=== PATIENT | female | born 2005 | race Caucasian/White ===

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

== ENCOUNTER 2025-01-13 18:02 | Outpatient (CLI) | payer MEDICAID, SELFPAY ==
--- NOTE | 2025-01-13 18:15 | DI.RAD_ITS ---
Exam(s) XR CHEST 2V PA LATERAL EXAM: XR CHEST 2V PA LATERAL CLINICAL HISTORY: eval pathology ? pna TECHNIQUE: 2D digital imaging was performed. Two views. COMPARISON: CR,XR XR CHEST 2V PA LATERAL from 03/28/2023 FINDINGS: HEART: Normal size. Aorta: Not dilated. PULMONARY VASCULATURE: Normal. MEDIASTINUM: Unremarkable. LUNGS: Clear. PLEURAL SPACE: No pleural effusion or pneumothorax. BONE:Unremarkable for age. SOFT TISSUES: Unremarkable. IMPRESSION: No acute abnormality. DATA REPOSITORY: RADIATION DOSE DELIVERED:
== END 2025-01-13 18:22 ==
LOC: DI 18:03
PROVIDERS: PCP Student in an Organized Health Care Education/Training Program; Visit Provider Nurse Practitioner Family
DX: R05.9 Cough, unspecified (principal)
CPT/HCPCS: 71046

== ENCOUNTER 2025-02-22 17:05 | Outpatient (CLI) | payer MEDICAID, SELFPAY ==
--- NOTE | 2025-02-22 17:00 | DI.RAD_ITS ---
Exam(s) XR ABDOMEN FLAT PLATE EXAM: XR ABDOMEN FLAT PLATE CLINICAL HISTORY: evaluate for constipation. TECHNIQUE: 2D digital imaging was performed. COMPARISON: No exams were available for comparison FINDINGS: AP supine view of the abdomen-pelvis: The bowel gas pattern is nonspecific in the supine position. There are no dilated bowel loops eviden t. No obvious masses nor bowel displacement. IUD is noted in the central pelvis. Regional bones appear unremarkable. No scoliosis. No abnormal calcifications over the kidneys in course of the ureters. IMPRESSION: Nonspecific bowel gas pattern. IUD noted in the pelvis. DATA REPOSITORY: RADIATION DOSE DELIVERED:
== END 2025-02-22 17:25 ==
LOC: DI 17:06
PROVIDERS: PCP Student in an Organized Health Care Education/Training Program; Visit Provider Pediatrics
DX: R10.9 Unspecified abdominal pain (principal); Z97.5 Presence of (intrauterine) contraceptive device
CPT/HCPCS: 74018

== ENCOUNTER 2025-03-24 13:28 | Outpatient (CLI) | payer MEDICAID, SELFPAY ==
[2025-03-24 11:48] LABS: Abs Immature Grans 0.01 10^3/uL (0.0-0.06); Absolute Basophil Count 0.03 10^3/uL (0.0-0.2); Absolute Eosinophil Count 0.04 10^3/uL (0.0-0.7); Absolute Lymphocyte Count 1.69 10^3/uL (1.2-3.4); Absolute Monocyte Count 0.35 10^3/uL (0.1-0.8); Basophils % 0.6 %; Eosinophils % 0.7 %; HCT 37.8 % (36.0-46.0); HGB 12.6 g/dL (11.2-15.7); Immature Grans % 0.2 %; Lymphocytes % 31.2 %; MCHC 33.3 % (32.0-36.0); MCV 90 fL (80-95); MPV 10.9 fL (8.0-11.0); Monocytes % 6.5 %; Neutrophils % 60.8 %; Platelet Count 228 10^3/uL (130-400); RDW 12.8 % (11.7-14.6); RDW-SD 42.1 fL; WBC 5.42 10^3/uL (4.4-10.8)
[2025-03-24 11:50] LABS: ESR < 1 mm/hr (0-20)
[2025-03-24 12:24] LABS: ALT 20 U/L (14-59); AST 19 U/L (15-37); Albumin 3.8 g/dL (3.4-5.0); Alkaline Phosphatase 62 U/L (46-116); Anion Gap 6.2 mmol/L (3-11); BUN 15 mg/dL (7-18); Bilirubin, Total 0.6 mg/dL (0.2-1.0); CO2 29.8 mmol/L (21.0-32.0); CREATININE 0.7 mg/dL (0.55-1.02); Calcium 8.8 mg/dL (8.5-10.1); Chloride 104 mmol/L (98-107); Estimated GFR 127.69 (mL/min/1.73m2); Glucose 102 mg/dL (74-106); Sodium 140 mmol/L (136-145); Total Protein 6.7 g/dL (6.4-8.2)
[2025-03-24 12:25] LABS: C-Reactive Protein < 0.50 mg/dL (<or=0.5)
[2025-03-27 12:27] LABS: IgA 120 mg/dL (85-499); Interpretation (See Note); Tissue Transglutaminase IgA <4.0 CU (<20.0)
== END 2025-03-24 13:29 | disposition home or self-care (01) ==
LOC: LBO 13:29
PROVIDERS: PCP Student in an Organized Health Care Education/Training Program; Visit Provider Pediatrics
DX: K92.1 Melena (principal)
CPT/HCPCS: 36415; 80053; 82784; 83516; 85652; 85025; 86140

== ENCOUNTER 2025-08-21 19:14 | Outpatient (REF) | payer MEDICAID, SELFPAY | END 2025-08-21 19:15 | disposition home or self-care (01) | LOC: LBN 19:14 | PROVIDERS: PCP Student in an Organized Health Care Education/Training Program; Visit Provider Physician Assistant | DX: B34.9 Viral infection, unspecified (principal) | CPT/HCPCS: 87070 ==